=== PATIENT | female | born 1995 ===

== ENCOUNTER 2021-09-27 09:18 | Outpatient (CLI) | payer OTHER | END 2021-09-27 10:15 | disposition home or self-care (01) | LOC: PRENATAL 09:18 | PROVIDERS: ATTEND Obstetrics & Gynecology Maternal & Fetal Medicine | DX: Z36.89 Encounter for other specified antenatal screening (principal); O36.80X1 Pregnancy with inconclusive fetal viability, fetus 1; Z3A.12 12 weeks gestation of pregnancy ==

== ENCOUNTER 2021-11-17 07:52 | Outpatient (CLI) | payer OTHER | END 2021-11-17 09:00 | disposition home or self-care (01) | LOC: PRENATAL 07:52 | PROVIDERS: ATTEND Obstetrics & Gynecology Maternal & Fetal Medicine | DX: O35.0XX1 Maternal care for (suspected) central nervous system malformation in fetus, fetus 1 (principal); O35.3XX1 Maternal care for (suspected) damage to fetus from viral disease in mother, fetus 1; O98.512 Other viral diseases complicating pregnancy, second trimester; Z36.89 Encounter for other specified antenatal screening; Z3A.20 20 weeks gestation of pregnancy ==

== ENCOUNTER 2022-02-15 10:03 | Outpatient (CLI) | payer OTHER | END 2022-02-15 11:37 | disposition home or self-care (01) | LOC: PRENATAL 10:03 | PROVIDERS: ATTEND Obstetrics & Gynecology Maternal & Fetal Medicine | DX: O26.849 Uterine size-date discrepancy, unspecified trimester (principal); Z3A.33 33 weeks gestation of pregnancy; O36.8199 Decreased fetal movements, unspecified trimester, other fetus ==

== ENCOUNTER 2022-03-21 10:40 | Outpatient (CLI) | payer OTHER ==
[~2022-03-21] VITALS: Ht 165.1 cm; Wt 94.3 kg
[2022-03-21] MEDS ORDERED: IRON236 MG PO (12:01)
[2022-03-21] MEDS ORDERED: PRENATAL TABLE1 EAC1 PO (12:01)
== END 2022-03-21 14:17 | disposition home or self-care (01) ==
LOC: OBS/DEL 10:40
PROVIDERS: ATTEND Student in an Organized Health Care Education/Training Program
DX: O32.1XX0 Maternal care for breech presentation, not applicable or unspecified (principal); Z3A.37 37 weeks gestation of pregnancy

== ENCOUNTER 2022-03-22 14:12 | Inpatient (IN) | payer OTHER ==
[~2022-03-22] VITALS: Ht 165.1 cm; Wt 3.6 kg
[~2022-03-22 14:12] MED LIST: IRON236 MG PO; PRENATAL TABLE1 EAC1 PO
[2022-03-25] MEDS ORDERED: COLACE100 MG PO (13:28)
[2022-03-25] MEDS ORDERED: IBU800 MG PO (13:28)
[2022-03-25] MEDS ORDERED: SIMETHICONE80 MG PO (13:28)
== END 2022-03-25 13:59 | disposition home or self-care (01) | DRG 788 ==
LOC: OBS/DEL 14:12 → LDR 21:27 → OB/GYN 21:27
PROVIDERS: ADMIT Student in an Organized Health Care Education/Training Program; ATTEND Student in an Organized Health Care Education/Training Program
PROC: 4A1HXCZ Monitoring of Products of Conception, Cardiac Rate, External Approach (ICD-10-PCS; 2022-03-22)
PROC: 10D00Z1 Extraction of Products of Conception, Low, Open Approach (ICD-10-PCS; principal; 2022-03-22 22:00)
DX: O36.63X0 Maternal care for excessive fetal growth, third trimester, not applicable or unspecified (principal); O32.8XX0 Maternal care for other malpresentation of fetus, not applicable or unspecified; Z3A.37 37 weeks gestation of pregnancy; Z37.0 Single live birth; Z20.822 Contact with and (suspected) exposure to COVID-19